=== PATIENT | male | born 2000 | race Caucasian/White ===

== ENCOUNTER 2019-02-09 15:14 | Emergency (ER) | payer OTHER, BC, SELFPAY ==
[2019-02-09 15:16] VITALS: BP 133/75; PULSE 74; RESP 18; TEMP 36.8; O2SAT 98; BMI 32.3
--- NOTE | 2019-02-09 15:50 | ED.VISSUMM ---
- ER Visit Summary Date of Service: 02/09/19 Chief Complaint: Chest wall pain History of Present Illness: The patient is a 18 M presenting with chest wall pain. Patient states that he was at work. He states he started reaching for a part and felt a pull in the right side of his chest wall. He denies shortness of breath. Denies other injuries. Pain is worsened when he moves his arm. He tried no medication prior to arrival. Physical Examination: Vitals are stable. Patient is afebrile. Alert no acute distress. HEENT exam is unremarkable. Neck is supple. Lungs are clear and equal bilaterally. Right chest wall tenderness with no crepitus Heart is regular rate and rhythm. Abdomen is soft nontender nondistended. Extremities are unremarkable. Skin is warm and dry. Remainder of exam is unremarkable. Emergency Department Course and Treatment: Patient was given Toradol IM. Right rib x-ray shows RIBS: Normal x-ray examination of the ribs. CHEST: Normal x-ray examination of the chest. There is no interval change. He was advised to follow-up with corporate care.he is given a prescription for Naprosyn. Advised return to ED for worsening complaints. Disposition: Discharge home Impression: Chest wall strain This note was generated with [employer] dictation software. It may contain incorrect words, spelling, and punctuation that were not noted in review of the chart prior to signing ED Disposition - Plan for ED Patient: Referrals: Care Physician,No Primary [Primary Care Provider] -
[2019-02-09] MEDS: Ketorolac 60 MG/2 ML Vial IM (16:10)
--- NOTE | 2019-02-09 16:22 | RAD_ITS ---
STUDY: X-RAY - UNILATERAL RIBS ( RIGHT ) WITH CHEST REASON FOR EXAM: Male, 18 years old. Chest pain. Anterior rib pain. TECHNIQUE - RIBS: 3 view(s) of the ribs. TECHNIQUE - CHEST: Single PA view of the chest. COMPARISON: March 07, 2015. FINDINGS - RIBS: Normal visualized ribs without a demonstrated fracture. FINDINGS - CHEST: The lungs are clear and expanded. There is no demonstrated pleural abnormality. Normal size heart. Normal mediastinum and renee. Normal visualized pulmonary arteries. Normal visualized aortic arch and descending thoracic aorta. Normal visualized thoracic spine. Normal visualized ribs, clavicles, and shoulders. There is no demonstrated abnormality of the visualized soft tissue structures of the upper abdomen. RAD/Ribs Uni Min 3V w/PA Chest IMPRESSION: RIBS: Normal x-ray examination of the ribs. CHEST: Normal x-ray examination of the chest. There is no interval change. Electronically Signed: Hari Sim DO at 16:33 EDT Tel [phone], Service support ,
--- NOTE | 2019-02-09 16:49 | DCINST.ED_ITS ---
ED Disposition - Plan for ED Patient: Instructions: Chest Wall Strain Prescriptions: Naproxen [Naprosyn] 500 mg PO BID PRN #20 tablet Referrals: Corporate,[facility], [place] [GROUP OF PHYSICIANS] -
[2019-02-09 17:18] VITALS: BP 118/71; PULSE 73; RESP 18
== END 2019-02-09 17:19 | disposition home or self-care (01) ==
LOC: ED 16:40
PROVIDERS: Emergency Provider Emergency Medicine
DX: S29.011A Strain of muscle and tendon of front wall of thorax, initial encounter (principal); X58.XXXA Exposure to other specified factors, initial encounter; Y93.9 Activity, unspecified; Y92.9 Unspecified place or not applicable
CPT/HCPCS: 71101; 96372; 99283

== ENCOUNTER 2024-07-28 07:34 | Emergency (ER) | payer OTHER, SELFPAY ==
[2024-07-28 07:35] VITALS: BP 145/94; PULSE 85; RESP 14; TEMP 36.6; O2SAT 98; BMI 38.1
--- NOTE | 2024-07-28 07:44 | EDS_ITS ---
HPI History of Present Illness Chief Complaint: Back Informant: patient and spouse/S.O. Narrative Narrative: 23-year-old male presenting to the emergency room with right flank pain. Patient states that couple days ago he went to get off the toilet and felt pain in the right flank. He states it is worse with movement and with coughing. He has not had any shortness of breath no urinary symptoms no abdominal pain nausea vomiting or diarrhea. He denies any rashes or fevers. He states that he is using some heat which seem to help. This morning it seemed worse so he came to emergency. Denies taking any medications currently or having any allergies. He uses a jackhammer at work but does not recall a particular time that would have injured himself. He denies any bowel or bladder dysfunction PFSH PFS Home Medications ?Medication ?Instructions ?Recorded ?Last Taken ?Type naproxen 500 mg tablet 500 mg PO BID PRN #20 tabs 02/09/19 Unknown Rx ondansetron 4 mg disintegrating 4 mg PO Q6H PRN nausea and 08/10/23 Unknown Rx tablet vomiting #14 tabs cyclobenzaprine 10 mg tablet 10 mg PO TID PRN Muscle Spasm #15 07/28/24 Unknown Rx TABLETS ketorolac 10 mg tablet 10 mg PO Q8H PRN pain #15 tabs 07/28/24 Unknown Rx Allergy/AdvReac Type Severity Reaction Status Date / Time pollen extracts Allergy Intermediate Other Verified 07/28/24 07:34 bee pollen Allergy Swelling Verified 07/28/24 07:34 Social History Smoking Status: Never smoker [facility] ED Constitutional Constitutional ED: Denies chills, fever(s) or weight loss Eyes Eyes: Denies change in vision or diplopia ENT ENT ED: Denies ear pain, rhinorrhea or sore throat Cardiovascular Cardiovascular: Denies chest pain, orthopnea, palpitations or racing heartbeat Respiratory/Chest Respiratory/Chest: Denies cough, dyspnea or orthopnea Gastrointestinal Gastrointestinal: Denies abdominal pain, diarrhea, nausea or vomiting Genitourinary Genitourinary ED: Denies dysuria, hematuria or urinary frequency Musculoskeletal Musculoskeletal: Reports back pain; Denies arthralgias, myalgias or neck pain Integumentary Denies abscess or rash Neurologic Neurologic: Denies headache(s) or weakness Psychiatric Psychiatric: Denies anxiety, depression, suicidal ideation or suicidal thoughts Endocrine Endocrinology: Denies polydipsia, polyphagia or polyuria Allergic/Immunologic Allergic/Immunologic ED: Denies mouth swelling, tongue swelling or urticaria EXAM Physical Exam Const Vital Signs: 07/28/24 07:35 Temperature 98 F Temperature Source Temporal Pulse Rate 85 Respiratory Rate 14 Blood Pressure 145/94 H Blood Pressure Mean 111 Pulse Ox 98 Oxygen Delivery Method Room Air Positive well nourished, well developed and obese General Appearance ED: well developed and NAD Nutritional Appearance: obese HEENT Reports normocephalic, head/scalp atraumatic and moist mucous membranes Eyes PERRL and EOMs intact bilaterally Neck no lymphadenopathy, supple and no JVD Resp normal respiratory effort and clear to auscultation bilaterally Cardio regular rate, regular rhythm and no murmurs GI normal to inspection, nondistended, normoactive bowel sounds and non-tender Inspection: Negative for abdominal distention Palpation: soft; Negative for tender, guarding or rebound tenderness present Back/Spine Back/Spine Narrative: Patient reports tenderness to palpation over the right lumbar musculature and in the CVA area. I do not appreciate any rashes. No tissue texture changes to suggest underlying infection. Extremity normal to inspection General Extremety ED: Negative for edema General Extremity: Negative for edema Neuro oriented x3 and CN's II-XII intact bilaterally Sensorium / Orientation: alert Motor Exam: strength 5/5 throughout Psych mental status grossly normal Mood & Affect: Negative for depressed or tearful Skin no rashes or lesions noted and no wounds MDM MDM MDM Narrative Medical decision making narrative: Differential diagnosis includes but not limited to lumbar muscle spasm lumbar radiculopathy degenerative joint disease kidney stone psoas muscle hematoma/infection shingles retroperitoneal hematoma CT abdomen pelvis without contrast does not demonstrate any significant findings to explain the patient's pain. There is some degenerative changes noted most pronounced L4 and L5 and L5 and S1. Patient received Toradol and Valium here in the department. Clinically I think this is muscular spasm. He does not have any fever or obvious urinary symptoms. His symptoms are reproducible with palpation and movement. Would recommend muscle relaxants anti-inflammatories heat gentle stretching. He needs to be cognizant of his current occupation using a jackhammer and is degenerative changes of the lower spine which will most likely be progressive. He is recommended to establish primary care. He was advised of worsening symptoms and plan to return if need be History & Record Review Discussion w/independent historian: Patient and Significant other Radiography Diagnostic Testing: Clinical Impression(s) from Imaging Studies Abdomen/Pelvis CT 07/28/24 07:44 IMPRESSION: Bladder wall thickening, this may be partially secondary to its incompletely distended state, cannot exclude cystitis. Multilevel degenerative changes, most pronounced at L4-L5 and L5-S1. Electronically Signed: Mary Richardson MD at 8:36 EST , Discharge Plan Triage Chief Complaint: Back ED Provider: Eriberto Freire Dx/Rx/DC Orders Clinical Impression: Lumbar paraspinal muscle spasm, Acute low back pain, Degenerative lumbar spinal stenosis Instructions: ED Back Spasm, No Trauma Prescriptions: New cyclobenzaprine 10 mg tablet 10 mg PO TID PRN (Reason: Muscle Spasm) Qty: 15 0RF ketorolac 10 mg tablet 10 mg PO Q8H PRN (Reason: pain) Qty: 15 0RF Rx Instructions: maximum total duration of 5 days from all oral, intranasal, or parenteral formulations No Action ondansetron 4 mg tablet,disintegrating 4 mg PO Q6H PRN (Reason: nausea and vomiting) Qty: 14 0RF naproxen 500 MG tablet 500 mg PO BID PRN Qty: 20 0RF Primary Care Provider: Care Physician,No Primary Referrals: Care Physician,No Primary [Primary Care Provider] - Activity Restrictions/Additional Instructions: I recommend following up with primary care. I recommend heat gentle stretching. This will take usually several days to weeks to fully resolve. Monitor for any changes in leg symptoms such as pain numbness weakness Print Language: Telugu Disposition Disposition: Home, Self Care
--- NOTE | 2024-07-28 07:44 | CT_ITS ---
INDICATION: right flank pain EXAMINATION: CT ABDOMEN AND PELVIS WITHOUT CONTRAST - CT Abdomen And Pelvis W/O Contrast Injection TECHNIQUE: Helically acquired images were obtained of the abdomen and pelvis without oral or IV contrast. The protocol utilizes one or more of the following dose reduction techniques: automated exposure control, adjustment of mA and/or kV according to patient size,and/or use of iterative reconstruction technique. IV Contrast dosage and agent: None. Oral contrast: None. RADIATION DOSAGE (If Supplied By Facility): CTDIvol = ( 21.24 ) mGy, DLP = ( 1130.32 ) mGycm COMPARISON: No relevant prior comparison study available FINDINGS: LOWER CHEST: Lung bases are clear. No cardiomegaly or pericardial effusion. The lack of intravenous contrast limits evaluation of solid visceral organs. LIVER: Homogeneous. No focal mass. GALLBLADDER AND BILIARY TREE: No calcified gallstones. No gallbladder distension or wall edema. No intra- or extrahepatic biliary ductal dilation. PANCREAS: No focal cystic or solid mass. SPLEEN: Normal size without focal cystic or solid mass. ADRENAL GLANDS: No nodules. KIDNEYS AND URETERS: Normal renal size and position. No hydronephrosis. PERITONEUM: No ascites or free air. No other fluid collection. BOWEL: No evidence of acute appendicitis. No stomach or bowel distension. No focal inflammatory change. LYMPH NODES: No enlarged mesenteric or retroperitoneal lymph nodes. VESSELS: Aorta is non-dilated. URINARY BLADDER: The bladder is incompletely distended. There is bladder wall thickening. REPRODUCTIVE ORGANS: No pelvic masses. ABDOMINAL WALL: There is a small fat-containing umbilical hernia BONES: There are multilevel degenerative changes of the lumbar spine. There is a posterior disc osteophyte at L4-L5 associated with bilateral narrowing of the neural foramina. There is a posterior disc osteophytes at L5-S1 associated with stenosis of the central canal and bilateral narrowing of the neural foramina. CT/Abdomen/Pelvis without Cont IMPRESSION: Bladder wall thickening, this may be partially secondary to its incompletely distended state, cannot exclude cystitis. Multilevel degenerative changes, most pronounced at L4-L5 and L5-S1. Electronically Signed: Mary Richardson MD at 8:36 EST ,
[2024-07-28] MEDS: diazePAM 5 MG Tablet PO (07:58)
[2024-07-28] MEDS: Ketorolac 60 MG/2 ML Vial IM (07:58)
--- NOTE | 2024-07-28 08:54 | CM.ED ---
Social work Reason for referral: no PCP Referral source: case find This SW identified patient's lack of PCP and need for resources. This SW entered patient's room, introducing self and role at [facility]. Patient was sitting up in bed and patient's , Poly, was bedside. Patient gave permission to speak with patient's present. Patient reported back pain for the last two days, reporting a desire to come to [facility] ED when patient was unable to get out of bed today. Patient's reported patient needed some encouragement to come in today. Patient reported struggling with back pain in the past, but pain reportedly only lasts a few hours at a time usually. Patient confirmed his lack of PCP and patient stated he has not had a PCP before unless it was as a kid. Patient accepted resources of [facility] Provider Directory and [facility]. Patient's stated it was definitely time for patient to receive a PCP and patient agreed. Patient and patient's denied need for further resources at this time. Jaclyn Ulloa, JAMMER OPERATOR, DOLLY OPERATOR
[2024-07-28 09:17] VITALS: BP 129/84; PULSE 74; RESP 15; TEMP 36.7; O2SAT 99
== END 2024-07-28 09:19 | disposition home or self-care (01) ==
PROVIDERS: Emergency Provider Emergency Medicine; Visit Provider Emergency Medicine
DX: M48.061 Spinal stenosis, lumbar region without neurogenic claudication (principal); M62.830 Muscle spasm of back; M54.50 Low back pain, unspecified; X58.XXXA Exposure to other specified factors, initial encounter
CPT/HCPCS: 74176; 96372; 99282